=== PATIENT | female | born 1985 ===

== ENCOUNTER 2022-12-16 05:18 | Inpatient (IN) | payer MEDICAID ==
[2022-12-16] MEDS ORDERED: Sodium Chloride 0.9% 10 ML Syringe FLUSH PRN (05:35)
[2022-12-16] MEDS ORDERED: Sodium Chloride 0.9% 2.5 ML Syringe FLUSH PRN (05:35)
[2022-12-16] MEDS ORDERED: ceFAZolin 2 GM in Sodium Chloride 0.9% 50 ML IV ONE (05:35)
[2022-12-16] MEDS ORDERED: Sodium Chloride 0.9% 20 ML SDV IV PRN (05:35)
[2022-12-16] MEDS ORDERED: Citric Acid/Sodium Citrate Solution 30 ML Cup PO ONE (05:35)
[2022-12-16] MEDS ORDERED: Oxytocin/0.9 % Sodium Chloride 30 UNIT/500 ML BAG IV SCH ×2 (05:45→08:45)
[2022-12-16] MEDS: Lactated Ringers 1,000 ML IV SCH ×2 (06:06→06:24)
[2022-12-16 06:13] LABS: HEMOGLOBIN 11.7 g/dL (12.0-16.0); MEAN CORPUSCULAR HEMOGLOBIN 27.9 pg (27.0-32.0); MEAN CORPUSCULAR HGB CONC 33.4 g/dL (31.0-37.0); MEAN CORPUSCULAR VOLUME 83.3 fL (80.0-98.0); MEAN PLATELET VOLUME 11.7 fL (7.40-12.00); RED BLOOD CELL COUNT 4.2 M/uL (4.30-5.90); WHITE BLOOD CELL COUNT,WBC 8.5 K/uL (4.0-11.0)
[2022-12-16] MEDS ORDERED: Oxytocin 10 Units/1 ML SDV ONE (07:04)
[2022-12-16] MEDS ORDERED: Ketorolac 30 MG/ML SDV ONE (07:04)
[2022-12-16] MEDS ORDERED: Ondansetron 4 MG/2 ML SDV ONE (07:04)
[2022-12-16] MEDS ORDERED: ceFAZolin 1 GM Vial ONE (07:04)
[2022-12-16] MEDS ORDERED: Morphine PF 10 MG/10 ML SDV ONE (07:04)
[2022-12-16] MEDS ORDERED: fentaNYL 100 MCG/2 ML SDV ONE (07:04)
[2022-12-16] MEDS ORDERED: Dexamethasone 4 MG/ML 5 ML MDV ONE (07:04)
[2022-12-16] MEDS ORDERED: Phenylephrine 1% 10 MG/ML SDV ONE (07:04)
[2022-12-16] MEDS ORDERED: Ropivacaine 0.5% 5 MG/ML 30 ML SDV ONE (07:06)
[2022-12-16] MEDS ORDERED: Tranexamic Acid 1,000 MG/10 ML Vial ONE (08:13)
[2022-12-16] MEDS ORDERED: Lanolin 100% Cream 7 GM Tube TOP PRN (08:36)
[2022-12-16] MEDS ORDERED: Tranexamic Acid 1,000 MG in Sodium Chloride 0.9% 100 ML IV PRN (08:36)
[2022-12-16] MEDS ORDERED: diphenhydrAMINE 50 MG/ML SDV IVPUSH PRN ×2 (08:36→08:42)
[2022-12-16] MEDS ORDERED: Ibuprofen 800 MG Tab PO PRN (08:36)
[2022-12-16] MEDS ORDERED: Methylergonovine 0.2 MG/1 ML Amp IM PRN (08:36)
[2022-12-16] MEDS ORDERED: Bisacodyl 10 MG Supp RECTAL PRN (08:36)
[2022-12-16] MEDS ORDERED: Ondansetron 4 MG/2 ML SDV IVPUSH PRN ×3 (08:36→08:42)
[2022-12-16] MEDS ORDERED: Acetaminophen/oxyCODONE 325-5 MG Tab PO PRN ×2 (08:36→08:42)
[2022-12-16] MEDS ORDERED: Misoprostol 200 MCG Tab RECTAL PRN (08:36)
[2022-12-16] MEDS ORDERED: Oxytocin 10 Units/1 ML SDV IM PRN (08:36)
[2022-12-16] MEDS ORDERED: Morphine 2 MG/ML SYRINGE IVPUSH PRN (08:42)
[2022-12-16] MEDS ORDERED: HYDROmorphone 2 MG/ML Syringe IVPUSH PRN (08:42)
[2022-12-16] MEDS ORDERED: droPERidol 5 MG/2 ML SDV IVPUSH PRN (08:42)
[2022-12-16] MEDS ORDERED: Metoclopramide 10 MG/2 ML SDV IVPUSH PRN (08:42)
[2022-12-16] MEDS ORDERED: ePHEDrine 50 MG/ML SDV IVPUSH PRN (08:42)
[2022-12-16] MEDS ORDERED: Albuterol 0.083% 2.5 MG/3 ML Neb Soln NEB PRN (08:42)
[2022-12-16] MEDS ORDERED: fentaNYL 100 MCG/2 ML SDV IVPUSH PRN ×2 (08:42)
[2022-12-16] MEDS ORDERED: Naloxone 0.4 MG/ML SDV IVPUSH PRN (08:42)
[2022-12-16 08:45] LABS: PH,UMBILICAL ARTERIAL 7.296 (7.18-7.38); PH,UMBILICAL VENOUS 7.333 (7.25-7.45)
[2022-12-16] MEDS ORDERED: Ketorolac 30 MG/ML SDV IVPUSH SCH (08:45)
[2022-12-16] MEDS ORDERED: Lactated Ringers 1,000 ML IV SCH (08:45)
[2022-12-16] MEDS: Docusate Sodium 100 MG Cap PO SCH ×2 (10:20→22:03)
[2022-12-16] MEDS: Acetaminophen 1,000 MG in Premix Bag 1 BAG IV SCH ×3 (10:42→22:04)
[2022-12-16] MEDS: Ketorolac 30 MG/ML SDV IVPUSH SCH ×2 (15:09→22:03)
[2022-12-17] MEDS: Ketorolac 30 MG/ML SDV IVPUSH SCH ×3 (03:48→15:00)
[2022-12-17] MEDS: Acetaminophen 1,000 MG in Premix Bag 1 BAG IV SCH ×2 (03:49→10:00)
[2022-12-17 06:21] LABS: HEMATOCRIT 30.4 % (36.0-46.0)
[2022-12-17] MEDS: Docusate Sodium 100 MG Cap PO SCH ×2 (09:42→20:29)
[2022-12-17] MEDS: Acetaminophen/oxyCODONE 325-5 MG Tab PO PRN (20:28)
[2022-12-18] MEDS: Acetaminophen/oxyCODONE 325-5 MG Tab PO PRN ×2 (04:11→08:33)
[2022-12-18] MEDS: Docusate Sodium 100 MG Cap PO SCH (08:34)
== END 2022-12-18 11:23 | disposition home or self-care (01) | DRG 788 ==
LOC: MW.OB 05:18
PROVIDERS: ADMIT Obstetrics & Gynecology; ATTEND Obstetrics & Gynecology
PROC: 10D00Z1 Extraction of Products of Conception, Low, Open Approach (ICD-10-PCS; principal; 2022-12-16)
DX: O44.43 Low lying placenta NOS or without hemorrhage, third trimester (principal); O99.284 Endocrine, nutritional and metabolic diseases complicating childbirth; O36.5930 Maternal care for other known or suspected poor fetal growth, third trimester, not applicable or unspecified; E03.9 Hypothyroidism, unspecified; Z37.0 Single live birth; Z3A.39 39 weeks gestation of pregnancy; Z79.890 Hormone replacement therapy; Z79.82 Long term (current) use of aspirin
CPT/HCPCS: 36415; 59025; 82803; 85014; 85018; 85027; 86592; 86850; 86900; 86901; A9270-GY; J0131; J0690; J1100; J1885; J2274; J2370; J2405; J2590; J2795; J3010; J3490; J7120